=== PATIENT | female | born 1990 | race Caucasian/White ===

== ENCOUNTER 2018-01-24 18:18 | Inpatient (IN) ==
[~2018-01-24 18:18] MED LIST: *HR* Nalbuphine 10 MG/ML AMPUL IVP PRN; Famotidine 20 MG/2 ML VIAL IVP PRN; Lidocaine 1% 20 ML MDV INFILT PRN; Metoclopramide 10 MG/2 ML VIAL IVP PRN; Naloxone 0.4 MG/ML INJ IVP PRN; Ondansetron 4 MG/2 ML VIAL IVP PRN; Penicillin G Potassium 5,000,000 UNIT in D5% in Water (Mini-Bag+) 100 ML IVPB ONE
[2018-01-24] MEDS ORDERED: Ringers Solution, Lactated 1,000 ML ONE (18:19)
--- NOTE | 2018-01-24 18:23 | OB/GYN History & Physical ---
Date of Encounter: 01/24/18 Time of Encounter: 18:20 Assessment and Plan (1) Intrauterine Current visit: Yes Status: Acute Admit to L&D for observation of labor Expectant management Labs-CBC and clot to hold Intermittent auscultation Pain management plan is natural childbirth Anticipate Dr. Gordillo is OB special education tutor and is available as needed (2) GBS (group B Streptococcus carrier), +RV culture, currently Current visit: Yes Status: Acute GBS prophylaxis with penicillin G5 million units 1, then 2.5 million units every 4 hours until delivery (3) Intact amniotic membranes during in third trimester Current visit: Yes Status: Acute (4) 38 weeks gestation of Current visit: No Status: Acute (5) Spontaneous onset of labor Current visit: No Status: Acute History of Present Illness Chief complaint: contractions HPI: Ms. Trevizo is a 27 year old female 003 at 38 weeks 1 days gestation with an estimated date of of 02/06/18 dated by LMP. She presents with complaints of contractions that started at 1700 this evening. She endorses good movement and denies leakage of fluid and vaginal bleeding. She was seen by the midwives throughout her . Her course has been uncomplicated. records are available electronically and have been reviewed. Labs: A+ GBS positive Hep B- HIV negative RPR nonreactive GC/CL negative Rubella immune Varicella immune Past Med Surg Social Fam HX - Past Medical History Medical history: no medical history Psychiatric history: no psych history - Past Surgical History Surgical History: no surgical history - Social History Smoking Status: Never smoker Smokeless Tobacco Status: No Alcohol use: none Drug use: none - Family History Grandmother Living Status: Hx Family Cancer: Yes Hx Family Endocrine Disorder: Yes Obstetrical History - Pregnancies : 4 Para: 3 Term: 3 (# 1: 04-17-11-- VAG DEL AT [address] GORDILLO-- FEMALE- 6LB 11 OZ ""[facility]OS"; # 2: 06-10-14-- VAG DEL AT 39 WEEKS DEL AT HOME VERY FAST LABOR- - FEMALE 7 LBS 0 OZ TRANSPORTED TO [facility]; # 3 09-21-15, normal spontaneous vaginal delivery (), male, 7lb 11oz, no complications. ) : 0 Ab's: 0 Livin Medications and Allergies Ibuprofen [Motrin] 600 mg PO Q6H PRN #60 tablet 09/23/15 [Rx] 3 Allergy/AdvReac Type Severity Reaction Status Date / Time No Known Allergies Allergy Verified 09/21/15 13:06 Review of System OB All systems PM: reviewed and no additional remarkable complaints except as stated Exam - Constitutional Constitutional: well developed, well nourished, average body habitus, mild distress - HEENT HEENT: PERRL, Normocephaly, Mucus Membranes Moist - Neck Neck exam: full ROM - Lungs Respiratory exam: CTAB - Cardiovascular Cardiovascular exam: RRR, +S1, +S2 - Breasts Breast: bilateral: normal - Abdomen Abdomen: Present: bowel sounds normal, gravid, non tender - Extremities Extremities exam: normal capillary refill, normal inspection, radial pulses palpable and symmetrical - Vulva Vulva: bilateral: normal - Vagina Vagina: Present: normal moisture - Cervix Dilation: 6 Effacement: 90 Station: 0 - Uterus Uterus exam: Present: normal size, normal contour - Adnexa Adnexa: bilateral: normal - Anus/Rectum Anus/Rectum: Present: normal perianal skin Results All other labs normal. - VTE Reasons for not Prescribing Prophylaxis: Treatment not Indicated - Low risk for VTE
[2018-01-24] MEDS ORDERED: Ringers Solution, Lactated 1,000 ML IVC SCH (18:30)
[2018-01-24] MEDS ORDERED: Penicillin G Potassium 5,000,000 UNIT in 0.9 % Sodium Chloride Mini Bag 100 ML IVPB ONE (18:45)
[2018-01-24 18:48] LABS: Basophils % 0.3 %; Eosinophils # 0.1 K/mcL (0.0-0.6); Eosinophils % 0.6 %; Hematocrit 35.6 % (35.3-44.9); Hemoglobin 11.4 g/dL (11.5-15.4); Immature Granulocytes % 0.5 % (0-4); Lymphocytes # 2.3 K/mcL (0.6-4.6); Lymphocytes % 19.3 %; Mean Corpuscular Hemoglobin 27.5 pg (28.0-33.3); Mean Platelet Volume 13.2 fL (9.4-12.4); Monocytes # 0.8 K/mcL (0.0-1.3); Monocytes % 6.3 %; Neutrophils # 8.7 K/mcL (1.6-8.9); Platelet Count 236 K/mcL (140-400); Red Blood Count 4.14 M/mcL (3.82-4.97); Red Cell Distribution Width 13.3 % (11.5-14.5)
[2018-01-24 18:58] LABS: Amphetamine Screen,Urine Negative ng/mL (Cutoff=1000); Barbiturate Screen,Urine Negative ng/mL (Cutoff=200); Benzodiazepines Screen,Urine Negative ng/mL (Cutoff=200); Cannabinoid Screen,Urine Negative ng/mL (Cutoff = 50); Cocaine Screen,Urine Negative ng/mL (Cutoff= 300); Opiate Screen,Urine Negative ng/mL (Cutoff=300); Phencyclidine Screen,Urine Negative ng/mL (Cutoff=25)
[2018-01-24] MEDS ORDERED: Oxytocin 20 units/ LR 1000 mL 20 UNIT/1,000 ML BAG IVC ONE ×2 (18:58→19:49)
[2018-01-24] MEDS ORDERED: Epidural Premix (fent/bupiv) 110 ML EP SCH (19:00)
[2018-01-24] MEDS ORDERED: Lidocaine 1% 20 ML MDV ONE (19:02)
[2018-01-24] MEDS ORDERED: Acetaminophen 325 MG TABLET PO PRN ×2 (19:24→19:34)
[2018-01-24] MEDS ORDERED: Ibuprofen 600 MG TABLET PO PRN (19:24)
[2018-01-24] MEDS ORDERED: Benzocaine/Menthol 56 GM AEROSOL SPRAY TP PRN ×2 (19:24→19:34)
--- NOTE | 2018-01-24 19:24 | OB/GYN Procedure Note ---
Delivery - Delivery Date: 01/24/18 Provider: Anayeli Silver Intrapartum events: meconium Delivery induction: none Delivery monitor: external FHT, external uterine Anesthesia: none Quantitated Blood Loss: 100 - (s) Infant A Delivery Date: 01/24/18 Infant Delivery Time: 18:59 Presentation: vertex Position: ADRIANA Route of delivery: Gender: Female Viability: Viable Pounds: 7 Ounces: 7 Weight Gram: 3.37 kg at 1 minute: 8 at 5 mins: 9 Shoulder Dystocia: not encountered Specimens collected: cord blood Placenta: spontaneous Cord: 3 umbilical vessels - Repair Episiotomy: none Laceration Description: Superficial (perineal and hemostatic - pt declined repair) - Complications Delivery complications: none Delivery comments: This is a 27-year-old G4 now P4 who is admitted for active labor. She progressed spontaneously to the second stage of labor. She pushed for about 3 minutes. She delivered a viable female infant, ADRIANA over an intact perineum. The was placed on the maternal abdomen where she was allowed to transition spontaneously. The cord was double clamped by lockstitch cup setter and cut by FOB after pulsations had ceased. No nuchal cord was identified. No shoulder dystocia was encountered. scores were 8 at 1 minute and 9 at 5 minutes. The weighed 7 lbs. 7 oz. (3370 g). The placenta delivered spontaneously , intact, with a three-vessel cord. Inspection revealed a slight separation of skin in the perineal area. Repair was offered to the patient and she declined. The space was hemostatic. The uterus was firm with no active bleeding. EBL was 100 mL. Placenta and umbilical artery blood blood gases were not sent. There were no complications during the procedure. Mom and baby are skin to skin following delivery. Dr. Benedict was in attendance for the full delivery and assisted. - Disposition Mom disposition: stable in LDR [place] disposition: stable in LDR
[2018-01-24] MEDS ORDERED: Oxytocin 20 units/ LR 1000 mL 20 UNIT/1,000 ML BAG IVC SCH (19:30)
[2018-01-24] MEDS: Ibuprofen 600 MG TABLET PO PRN (19:49)
[2018-01-24] MEDS ORDERED: Penicillin G Potassium 2,500,000 UNIT in 0.9 % Sodium Chloride 100 ML IVPB SCH (22:00)
[2018-01-25] MEDS: Ibuprofen 600 MG TABLET PO PRN ×2 (04:40→12:04)
[2018-01-25 08:08] VITALS: BP 113/68
[2018-01-25] MEDS ORDERED: Prenatal Vit/FA 1 EACH TABLET PO SCH (09:00)
--- NOTE | 2018-01-25 09:07 | Discharge Summary ---
Date of Encounter: 01/25/18 Time of Encounter: 09:03 - Discharge Diagnosis (1) Vaginal delivery Priority: Primary Status: Acute Comments: S/P vaginal delivery day 2 Pain is well controlled Lochia is light and without clots Tolerating regular diet; voiding and passing flatus without difficulty well Discharge home today - Discharge Medications Prescriptions: Ibuprofen [Motrin] 600 mg PO Q6HR PRN #30 tablet PRN Reason: Cramping Breast Pump [BREAST PUMP] 1 each .ROUTE AD #1 each Docusate [Colace] 100 mg PO BID #30 capsule Ferrous Sulfate 325 mg PO DAILY #90 tablet Home Medications: Vit Calc,Iron,Folic [ Vitamins] 1 / PO DAILY 01/24/18 [History] Acetaminophen [Tylenol] 650 mg PO Q6HR PRN tablet 01/25/18 [Rx] Benzocaine/Menthol [place] [Dermoplast [place]] 1 appl TP QID PRN aerosol 01/25/18 [Rx] Breast Pump [BREAST PUMP] 1 each .ROUTE AD #1 each 01/25/18 [Rx] Docusate [Colace] 100 mg PO BID #30 capsule 01/25/18 [Rx] Ferrous Sulfate 325 mg PO DAILY #90 tablet 01/25/18 [Rx] Ibuprofen [Motrin] 600 mg PO Q6HR PRN #30 tablet 01/25/18 [Rx] Allergies/Adverse Reactions: 3 Allergy/AdvReac Type Severity Reaction Status Date / Time No Known Allergies Allergy Verified 09/21/15 13:06 Data Procedures and tests throughout hospitalization: Laboratory Tests 01/24/18 01/24/18 18:25 18:25 WBC 11.9 H RBC 4.14 Hgb 11.4 L Hct 35.6 MCV 86.0 MCH 27.5 L MCHC 32.0 RDW 13.3 Plt Count 236 MPV 13.2 H Immature Gran % 0.5 Seg Neutrophils % 73.0 Lymphocytes % 19.3 Monocytes % 6.3 Eosinophils % 0.6 Basophils % 0.3 Neutrophils # 8.7 Lymphocytes # 2.3 Monocytes # 0.8 Eosinophils # 0.1 Basophils # 0.0 Urine Opiates Screen Negative Ur Barbiturates Screen Negative Ur Phencyclidine Scrn Negative Ur Amphetamines Screen Negative U Benzodiazepines Scrn Negative Urine Cocaine Screen Negative U Marijuana (THC) Screen Negative Ur Drug Screen Interp See Below Labs on day of discharge: Labs from last 24 hours 01/24/18 01/24/18 18:25 18:25 WBC 11.9 H RBC 4.14 Hgb 11.4 L Hct 35.6 MCV 86.0 MCH 27.5 L MCHC 32.0 RDW 13.3 Plt Count 236 MPV 13.2 H Immature Gran % 0.5 Seg Neutrophils % 73.0 Lymphocytes % 19.3 Monocytes % 6.3 Eosinophils % 0.6 Basophils % 0.3 Neutrophils # 8.7 Lymphocytes # 2.3 Monocytes # 0.8 Eosinophils # 0.1 Basophils # 0.0 Urine Opiates Screen Negative Ur Barbiturates Screen Negative Ur Phencyclidine Scrn Negative Ur Amphetamines Screen Negative U Benzodiazepines Scrn Negative Urine Cocaine Screen Negative U Marijuana (THC) Screen Negative Ur Drug Screen Interp See Below Date of admission: 01/24/18 18:18 Primary care physician: Britany Sawant CNP Consults: 01/24/18 19:24 Consult to Clinical Document Improvement Educator [CONS] Routine Comment: Vaginal delivery, consult needed Discharging clinician: Anayeli Parham Anticipated date of discharge: 01/25/18 - Patient Status Disposition: Home, Self-Care Condition: Good Functional capacity at discharge: independent ambulation Overall status at discharge: patient is progressing back to baseline - Discharge Instructions Follow Up With: Britany Sawant CNP [Primary Care Provider] - Chloé Cruz CNM [Non-Partnered Physician] - - Diet and Activity Activity: increase activity as tolerated Diet: regular diet Hospital Course Reason for admission: active labor, IUP at term Delivery: Episiotomy: none Laceration: none Other procedures: none complications: none Discharge diagnosis: IUP at term delivered baby: female Time Attestation: Total time spent providing and/or coordinating discharge services: Time Spent: Less than 30 minutes Exam - Constitutional Vitals: Temp Pulse Resp BP Pulse Ox 97.9 F 63 14 113/68 100 01/25/18 07:50 01/25/18 07:50 01/25/18 07:50 01/25/18 07:50 01/25/18 07:50 General appearance IM: cooperative, A&O X 3, pleasant - Respiratory Respiratory exam: Present: CTAB - Cardiovascular Cardiovascular exam IM: Present: RRR, +S1, +S2 - GI/Abdominal GI/Abdominal exam IM: normal bowel sounds, soft - Rectal Rectal exam: deferred - Uterine Tone: Firm Uterus Position: At Umbilicus, Midline - Extremities Exam Extremities exam IM: Present: normal capillary refill, normal inspection, radial pulses palpable and symmetrical - Neurological Exam Neurological exam: alert, oriented X3
== END 2018-01-25 16:00 | disposition home or self-care (01) | DRG 560 ==
LOC: 1NENULAB → 1NENUOBS 21:38
PROVIDERS: ADMIT Advanced Practice Midwife; ATTEND Advanced Practice Midwife